=== PATIENT | female | born 1965 | race Two or more races ===

== ENCOUNTER 2017-03-24 09:54 | Outpatient (CLI) | payer OTHER | END 2017-03-24 10:05 | disposition home or self-care (01) | LOC: LAB 09:54 | DX: D64.89 Other specified anemias (principal); E11.9 Type 2 diabetes mellitus without complications; E78.2 Mixed hyperlipidemia; I10 Essential (primary) hypertension; E03.8 Other specified hypothyroidism ==

== ENCOUNTER 2017-03-24 10:25 | Outpatient (CLI) | payer OTHER | END 2017-03-24 10:29 | disposition home or self-care (01) | LOC: SONOGRAMA 10:25 | DX: E04.1 Nontoxic single thyroid nodule (principal) ==

== ENCOUNTER 2017-07-25 14:47 | Outpatient (CLI) | payer OTHER | END 2017-07-25 15:23 | disposition home or self-care (01) | LOC: LAB 14:47 | DX: R10.84 Generalized abdominal pain (principal); E78.5 Hyperlipidemia, unspecified; K62.5 Hemorrhage of anus and rectum; K52.9 Noninfective gastroenteritis and colitis, unspecified; E03.5 Myxedema coma ==

== ENCOUNTER 2017-07-26 07:28 | Outpatient (CLI) | payer OTHER | END 2017-07-26 07:35 | disposition home or self-care (01) | LOC: SONOGRAMA 07:28 → MAMO-SONO 08:45 | DX: R10.84 Generalized abdominal pain (principal) ==

== ENCOUNTER 2017-07-26 08:18 | Outpatient (CLI) | payer OTHER | END 2017-07-26 08:48 | disposition home or self-care (01) | LOC: LAB 08:18 | DX: R10.84 Generalized abdominal pain (principal); E78.5 Hyperlipidemia, unspecified; K62.5 Hemorrhage of anus and rectum; K52.9 Noninfective gastroenteritis and colitis, unspecified; E03.5 Myxedema coma ==

== ENCOUNTER 2018-04-06 11:08 | Outpatient (CLI) | payer OTHER | END 2018-04-06 11:22 | disposition home or self-care (01) | LOC: LAB 11:08 | DX: D64.89 Other specified anemias (principal); E11.9 Type 2 diabetes mellitus without complications; E78.2 Mixed hyperlipidemia; I10 Essential (primary) hypertension; E03.8 Other specified hypothyroidism ==

== ENCOUNTER 2018-09-21 10:39 | Outpatient (CLI) | payer OTHER | END 2018-09-21 10:54 | disposition home or self-care (01) | LOC: LAB 10:39 | DX: E03.8 Other specified hypothyroidism (principal); E04.1 Nontoxic single thyroid nodule; E04.8 Other specified nontoxic goiter ==

== ENCOUNTER → 2018-09-21 | Outpatient (CLI) | payer OTHER | END | disposition home or self-care (01) | LOC: SONOGRAMA 10:25 | DX: E04.2 Nontoxic multinodular goiter (principal) ==

== ENCOUNTER 2019-01-02 13:52 | Outpatient (CLI) | payer OTHER | END 2019-01-02 14:01 | disposition home or self-care (01) | LOC: RAD 13:52 | DX: M25.512 Pain in left shoulder (principal); M25.571 Pain in right ankle and joints of right foot ==

== ENCOUNTER 2019-05-03 09:29 | Outpatient (CLI) | payer OTHER | END 2019-05-03 09:40 | disposition home or self-care (01) | LOC: SONOGRAMA 09:29 | DX: R10.84 Generalized abdominal pain (principal) ==

== ENCOUNTER 2020-05-04 09:08 | Outpatient (CLI) | payer OTHER | END 2020-05-04 09:11 | disposition home or self-care (01) | LOC: SONOGRAMA 09:08 | PROVIDERS: ATTEND Internal Medicine Gastroenterology | DX: R10.84 Generalized abdominal pain (principal) ==

== ENCOUNTER → 2020-05-04 10:17 | Outpatient (CLI) | payer OTHER | END | disposition home or self-care (01) | LOC: LAB 10:17 | PROVIDERS: ATTEND Internal Medicine Gastroenterology | DX: E03.8 Other specified hypothyroidism (principal); E78.49 Other hyperlipidemia; R10.84 Generalized abdominal pain ==